=== PATIENT | female | born 1995 | race Caucasian/White ===

== ENCOUNTER 2023-11-08 00:26 | Emergency (ER) | payer OTHER, MEDICAID, SELFPAY ==
--- NOTE | ~2023-11-08 | XR_ITS ---
Left Shoulder Technique: AP and scapular Y views were obtained. Clinical History: Pain Findings: No fracture or dislocation is seen. Osseous alignment is anatomic. The glenohumeral and acr omioclavicular joint spaces are preserved. Soft tissues are unremarkable. Impression: Unremarkable left shoulder radiographs. Reviewed, dictated and finalized at [facility]. Impression: Unremarkable left shoulder radiographs.
[2023-11-08 00:30] VITALS: BP 116/83; PULSE 90; RESP 16; TEMP 36.4; O2SAT 100
--- NOTE | 2023-11-08 01:15 | ED.UPPEXIN ---
HPI - Extremity Injury (Upper) General Chief Complaint: Extremity Injury, Upper Stated Complaint: L shoulder pain Time Seen by Provider: 11/08/23 00:52 Source: patient Mode of arrival: ambulatory Limitations: no limitations History of Present Illness HPI narrative: Patient is a 27-year-old female who presents the ED with report of left shoulder pain. Patient reports having pain for the last 3 days. She feels as though she slept on her arm wrong. Complains of pain in her left posterior shoulder/left lower neck. Reports she saw her primary care doctor today and was prescribed Flexeril. Denied improvement of the pain. She has also been taking Tylenol. Last took this around 11:00 p.m. Denies numbness, tingling, chest pain, shortness of breath. Related Data Allergies Allergy/AdvReac Type Severity Reaction Status Date / Time No Known Allergies Allergy Verified 11/08/23 00:38 Review of Systems Review of Systems: CONSTITUTIONAL: Denies fever, chills, or sweats. MUSCULOSKELETAL: See HPI. NEUROLOGIC: Denies headache, dizziness, numbness, or weakness. All systems reviewed & are unremarkable except as noted in HPI and below Exam Narrative: GENERAL: Well appearing, well-nourished, non-toxic, in no acute distress. HEAD: Normocephalic, atraumatic. NECK: No midline spinal tenderness. Tenderness throughout left-sided paraspinal musculature extending into upper trapezius region. Palpable muscle tension. RESPIRATORY: Airway patent, respirations nonlabored. CARDIOVASCULAR: Regular rate and rhythm without murmurs, rubs, or gallops. Radial pulses easily palpable. MUSCULOSKELETAL: Moves all extremities. No gross deformities. Mild tenderness to palpation over her left posterior shoulder. Nearly full range of motion of L shoulder joint. Sensation intact throughout left upper extremity. SKIN: Warm, dry, normal color. NEURO: A&O X3. Speech clear. PSYCHIATRIC: Appropriate mood and affect. Normal interaction. Course Vital Signs Vital signs: Vital Signs Temperature 97.6 F 11/08/23 00:30 Pulse Rate 90 11/08/23 00:30 Respiratory Rate 16 11/08/23 00:30 Blood Pressure 116/83 11/08/23 00:30 Pulse Oximetry 100 11/08/23 00:30 Oxygen Delivery Room Air 11/08/23 00:30 Temperature 97.6 F 11/08/23 00:30 Pulse Rate 90 11/08/23 00:30 Respiratory Rate 16 11/08/23 00:30 Blood Pressure 116/83 11/08/23 00:30 Pulse Oximetry 100 11/08/23 00:30 Oxygen Delivery Room Air 11/08/23 00:30 MDM - Extremity Injury (Upper) MDM Narrative Medical decision making narrative: Patient's injury is consistent with musculoskeletal etiology. No signs of neurologic or vascular compromise on physical examination. No midline spinal tenderness. No sensory changes, report of paresthesias in left arm. Palpable muscle tension noted throughout left-sided trapezius region. XR of left shoulder interpreted by myself without acute osseous abnormality. Pain is consistent with muscle strain. Patient is felt to be stable for discharge home and further outpatient management and treatment. Advised patient to continue anti-inflammatories, Tylenol, will prescribe Robaxin. Given arm sling for comfort and support. Will refer to Ortho for further eval if needed. Given return precautions. D/C in stable condition. Medical Records Attestation: I reviewed the patient's medical records. Imaging Data Attestation: I personally reviewed and interpreted this imaging study as follows: My impression: L shoulder: No acute osseous abnormality. Discharge Plan Discharge Clinical Impression: Strain of cervical portion of left trapezius muscle Strain of left shoulder Qualifiers: Encounter type: initial encounter Qualified Code(s): S46.912A - Strain of unspecified muscle, fascia and tendon at shoulder and upper arm level, left arm, initial encounter Patient Disposition: Home, Self-Care Condition: Stable Instructions: Antibiotic Form, Cervic
[2023-11-08] MEDS: KETOROLAC (*BKC) 60 MG/2 ML VIAL IM (01:20)
[2023-11-08] MEDS: ONDANSETRON HCL ODT 4 MG TABLET PO (01:39)
== END 2023-11-08 01:51 | disposition home or self-care (01) ==
PROVIDERS: Emergency Provider Physician Assistant; PCP Emergency Medicine
DX: S46.912A Strain of unspecified muscle, fascia and tendon at shoulder and upper arm level, left arm, initial encounter (principal); S16.1XXA Strain of muscle, fascia and tendon at neck level, initial encounter
CPT/HCPCS: 73030; 96372; 99283; A4565; A9270; J1885

== ENCOUNTER 2024-01-03 23:19 | Emergency (ER) | payer OTHER, MEDICAID, SELFPAY ==
--- NOTE | ~2024-01-03 | XR_ITS ---
EXAMINATION: XR chest 2V DATE: 01/03/2024 23:58 INDICATION: Cough and congestion. TECHNIQUE: Frontal and lateral views of the chest were obtained. COMPARISON: None. FINDINGS: There is no pneumonia, pleural effusion, or pneumothorax. The heart size is normal. IMPRESSION: 1. No acute cardiopulmonary disease. Reviewed, dictated and finalized at location E.
[2024-01-03 23:36] VITALS: BP 116/62; PULSE 78; RESP 16; TEMP 36.3; O2SAT 100
[2024-01-04 00:19] LABS: Strep Group A RT-PCR NOT DETECTED (Negative)
[2024-01-04 00:25] LABS: Influenza A QL RT-PCR Negative (Negative); Influenza B QL RT-PCR Negative (Negative); RSV RNA, RT-PCR Negative (Negative); SARS-CoV-2 RNA PCR Negative (Negative)
[2024-01-04 00:51] VITALS: O2SAT 97
--- NOTE | 2024-01-04 02:22 | ED.GENADULT ---
HPI - General Adult General Chief complaint: Upper Respiratory Infection Stated complaint: congestion Time Seen by Provider: 01/04/24 00:47 History of Present Illness HPI narrative: Patient is this 28-year-old female who presents ER with sinus congestion with sore throat and cough. Ongoing for 2-3 days. No improvement with NyQuil or Mucinex. No fevers or chills or sweats. Occasional dyspnea. no known sick contacts. Related Data Home Medications Medication Instructions Recorded Confirmed bupropion HCl 300 mg 24 hr tablet, mg PO 01/03/24 extended release buspirone 10 mg tablet mg 01/03/24 escitalopram oxalate 20 mg tablet mg 01/03/24 methocarbamol 750 mg tablet mg 01/03/24 Allergies Allergy/AdvReac Type Severity Reaction Status Date / Time No Known Allergies Allergy Verified 01/03/24 23:40 Review of Systems Constitutional: Constitutional: Reports no additional constitutional complaints ENT: Reports nasal congestion and Reports sore throat Cardiovascular: Cardiovascular: Reports no additional cardiovascular complaints Respiratory: Respiratory: Denies chest congestion, Reports cough, Reports dyspnea and Denies wheezing PMFSH Past Medical History Medical History (Updated 01/04/24 @ 04:28 by Stephen Carr MD) Healthy female adult Exam Narrative: GENERAL: Well-appearing, well-nourished, and in no acute distress. HEAD: Normocephalic, atraumatic. ENT: Mucous membranes moist. CHEST: Clear to auscultation. No respiratory distress. HEART: Regular rate and rhythm. Normal peripheral pulses. EXTREMITIES: Normal range of motion. No edema. NEURO: Alert and oriented x3. PSYCH: Normal mood and affect. Course Course Emergency Course: patient informed results. Offered a nebulizer treatment. She changed her mind inside walk on the ER before receiving discharge paperwork. Educated that she had a URI am not received antibiotics. Vital Signs Vital signs: Vital Signs Temperature 97.3 F L 01/03/24 23:36 Pulse Rate 78 01/03/24 23:36 Respiratory Rate 16 01/03/24 23:36 Blood Pressure 116/62 01/03/24 23:36 Pulse Oximetry 100 01/03/24 23:36 Oxygen Delivery Room Air 01/03/24 23:36 Temperature 97.3 F L 01/03/24 23:36 Pulse Rate 78 01/03/24 23:36 Respiratory Rate 16 01/03/24 23:36 Blood Pressure 116/62 01/03/24 23:36 Pulse Oximetry 97 01/04/24 00:51 Oxygen Delivery Room Air 01/04/24 00:51 Medical Decision Making Vital Signs Vital Signs: Vital Signs Temperature 97.3 F L 01/03/24 23:36 Pulse Rate 78 01/03/24 23:36 Respiratory Rate 16 01/03/24 23:36 Blood Pressure 116/62 01/03/24 23:36 Pulse Oximetry 100 01/03/24 23:36 Oxygen Delivery Room Air 01/03/24 23:36 Temperature 97.3 F L 01/03/24 23:36 Pulse Rate 78 01/03/24 23:36 Respiratory Rate 16 01/03/24 23:36 Blood Pressure 116/62 01/03/24 23:36 Pulse Oximetry 97 01/04/24 00:51 Oxygen Delivery Room Air 01/04/24 00:51 Lab Data Labs: Lab Results 01/03/24 Range/Units 23:42 Influenza A (RT-PCR) Negative (Negative) Influenza B (RT-PCR) Negative (Negative) RSV (RT-PCR) Negative (Negative) SARS-CoV-2 RNA (RT-PCR) Negative (Negative) Group A Strep (PCR) Not detected (Negative) Imaging Data Radiologist's impression: ITS Impressions Chest X-Ray 01/03/24 23:59 IMPRESSION: 1. No acute cardiopulmonary disease. Discharge Plan Discharge Clinical Impression: Upper respiratory infection Patient Disposition: Elopement After Seen by Prov Condition: Stable Prescriptions: No Action methocarbamol 750 mg tablet 1,500 mg PO TID PRN (Reason: muscle spasm) Qty: 15 0RF methocarbamol 750 mg tablet buspirone 10 mg tablet escitalopram oxalate 20 mg tablet bupropion HCl 300 mg tablet extended release 24 hr PO Follow-up/Referrals: UNKNOWN,DOCTOR
== END 2024-01-04 02:22 | disposition left against medical advice (07) ==
PROVIDERS: Physician Assistant; Emergency Provider Emergency Medicine
DX: J06.9 Acute upper respiratory infection, unspecified (principal); Z20.822 Contact with and (suspected) exposure to COVID-19; Z79.899 Other long term (current) drug therapy
CPT/HCPCS: 71046; 87637; 87651; 99283